=== PATIENT | female | born 1985 | race Caucasian/White ===

== ENCOUNTER 2022-03-21 09:29 | Outpatient (CLI) | payer BC | END 2022-03-21 09:30 | disposition home or self-care (01) | LOC: CSHMRI 09:29 | PROVIDERS: ATTEND Nurse Practitioner Family | DX: S46.001D Unspecified injury of muscle(s) and tendon(s) of the rotator cuff of right shoulder, subsequent encounter (principal); S46.011A Strain of muscle(s) and tendon(s) of the rotator cuff of right shoulder, initial encounter; S43.431A Superior glenoid labrum lesion of right shoulder, initial encounter ==